=== PATIENT | male | born 1965 | race Hispanic/Latino ===

== ENCOUNTER 2023-03-25 15:12 | Outpatient (CLI) | payer OTHER | END 2023-03-25 15:13 | disposition home or self-care (01) | LOC: BICRAD 15:12 | PROVIDERS: ATTEND Preventive Medicine Occupational Medicine | DX: I10 Essential (primary) hypertension (principal); M51.86 Other intervertebral disc disorders, lumbar region | CPT/HCPCS: 71046; 72070 ==